=== PATIENT | female | born 2000 | race Caucasian/White ===

== ENCOUNTER → 2019-07-27 14:22 | Outpatient (CLI) | payer OTHER, MEDICAID, SELFPAY ==
--- NOTE | 2019-07-27 | DI.RAD.S_ITS ---
PROCEDURE: XR LUMBAR SPINE 2-3V INDICATIONS: Dorsalgia, unspecified TECHNIQUE: 3 views of the lumbar spine were acquired. COMPARISON: None. FINDINGS: Bones: 5 vml-eav-vblqtzo vertebrae are present. There is normal bony alignment. No vertebral body compression fractures. No suspicious bony lesions. Soft tissues: Overlying bowel gas pattern is normal. No suspicious soft tissue calcifications. IMPRESSION: Normal lumbar spine radiograph. Dictated by: Shelbie Mcclendon M.D. on 07/27/2019 at 16:43 Approved by: Shelbie Mcclendon M.D. on 07/27/2019 at 16:44
== END ==
PROVIDERS: PCP Nurse Practitioner Family; Visit Provider Family Medicine
DX: M54.9 Dorsalgia, unspecified (principal)
CPT/HCPCS: 72100

== ENCOUNTER 2019-09-27 21:49 | Emergency (ER) | payer OTHER, MEDICAID, SELFPAY ==
[2019-09-27 21:59] VITALS: BP 117/74; PULSE 83; RESP 16; TEMP 37.1; O2SAT 99; BMI 24.0
--- NOTE | 2019-09-27 22:02 | DI.RAD.S_ITS ---
PROCEDURE: XR CHEST 2V INDICATIONS: Cough x 1 week, pain on inspiration TECHNIQUE: 2 views of the chest were acquired. COMPARISON: None. FINDINGS: Surgical changes and devices: None. Lungs and pleura: Lungs are clear. No pleural effusions or pneumothorax. Mediastinum: Mediastinal contours are normal. Heart size is normal. Bones and chest wall: No suspicious bony abnormalities. Soft tissues appear unremarkable. IMPRESSION: No acute cardiopulmonary disease process. Dictated by: Gail Peralta MD, PhD on 09/28/2019 at 7:45 Approved by: Gail Peralta MD, PhD on 09/28/2019 at 7:56
--- NOTE | 2019-09-28 00:26 | ED.URI ---
HPI - URI/Sore Throat General Chief Complaint: Upper Respiratory Symptoms Stated Complaint: cough Time Seen by Provider: 09/28/19 00:26 Source: patient Mode of arrival: Ambulatory Limitations: no limitations History of Present Illness HPI Narrative: The patient has been ill for about 1 week. She complains of cough that is generally nonproductive. She has no associated chest pain. She has no history of asthma or allergies. She does vape. She has no associated sinus pressure, rhinorrhea or sore throat. She has no associated GI symptoms. She has no fever chills. She is otherwise healthy without chronic illness. Related Data Home Medications Medication Instructions Recorded Confirmed norgestimate-ethinyl estradiol #0 08/02/17 [Aaliyah (28)] Previous Rx's Medication Instructions Recorded famotidine [Pepcid] 40 mg PO QDAY #10 08/02/17 sulfamethoxazole-trimethoprim 1 tab PO BID 7 Days #0 tab 08/02/17 sulfamethoxazole-trimethoprim 1 tab PO BID #14 tab 09/11/17 Allergies Allergy/AdvReac Type Severity Reaction Status Date / Time No Known Allergies Allergy Uncoded 02/24/18 12:47 Review of Systems Review of Systems ROS Unobtainable: All systems reviewed & are unremarkable except as noted in HPI and below Constitutional Constitutional: Denies chills, Denies fever(s), Denies lethargy and Denies weakness Eyes Eyes: Denies eye discharge ENT Ears, Nose, Mouth, and Throat: Denies change in voice, Denies dizziness, Denies facial pain, Denies nasal congestion, Denies neck pain and Denies sore throat Cardiovascular Cardiovascular: Denies chest pain, Denies lightheadedness, Denies dyspnea and Denies orthopnea Respiratory Respiratory: Reports chest congestion, Reports cough, Denies hemoptysis, Denies pain on inspiration, Denies pain with cough and Denies dyspnea Gastrointestinal Gastrointestinal: Denies abdominal pain and Denies nausea Musculoskeletal Musculoskeletal: Denies back pain and Denies neck pain Integumentary/Breasts Skin/Breast: Denies pruritus, Denies erythema and Denies rash Neurologic Neurologic: Denies dizziness and Denies weakness Patient History Medical History No acute medical problems (Acute) Surgical History (Updated 09/28/19 @ 00:36 by David Davis MD) No significant past surgical history (Acute) Social History Smoking Status: Current every day smoker tobacco type: vaping Substance Use Type: does not use Exam Initial Vital Signs Initial Vital Signs: Vital Signs Temperature 98.7 F 09/27/19 21:59 Pulse Rate 83 09/27/19 21:59 Respiratory Rate 16 09/27/19 21:59 Blood Pressure 117/74 09/27/19 21:59 Pulse Oximetry 99 09/27/19 21:59 Const General: cooperative and well developed Nutritional Appearance: well nourished Orientation: alert, awake, oriented x3 and not confused HENMT Head: normocephalic and atraumatic Ears: TM's normal bilaterally Nose: external nose normal and No nasal discharge Face and sinus: sinuses nontender and face symmetric Mouth: oral mucosae normal Throat: posterior oropharynx normal and tonsils normal Neck Neck: No lymphadenopathy and No tender Resp Effort & Inspection: normal respiratory effort and able to speak in complete sentences Auscultation: clear to auscultation bilaterally, no rales, no rhonchi and no wheezes Cardio Rate: regular rate Rhythm: regular rhythm Heart Sounds: S1 normal, S2 normal, no click, no gallops, no murmurs and no rubs Pulses: normal peripheral pulses GI Palpation: soft and No tender Skin General: no rashes or lesions noted and No petechiae Neuro General: alert, oriented x3, gait normal and no focal motor deficits Speech: speech normal Course Orders Ordered: ED Orders 09/27/19 22:02 XR chest 2V Stat Vital Signs Vital signs: Vital Signs - 8 hr 09/27/19 21:59 Temperature 98.7 F Pulse Rate 83 Respiratory Rate 16 Blood Pressure 117/74 Pulse Oximetry 99 MDM - URI/Sore Throat Imaging Data Chest x-ray: My impression: No acute process identified Discharge Plan Departure Patient Disposition: Home Clinical Impression: Upper respiratory infection, viral Instructions: Common Cold Activity Restrictions/Additional Instructions: Mucinex or Robitussin DM may benefit the cough and congestion. Follow-up with her doctor return the ER if you develop fever, lethargy, or worsening of symptoms. Prescriptions: No Action norgestimate-ethinyl estradiol [TriNessa (28)] 1 EACH tablet Qty: 0 RF: 0 famotidine [Pepcid] 40 MG tablet 40 mg PO QDAY Qty: 10 RF: 0 sulfamethoxazole-trimethoprim 800 MG/160 MG tablet 1 tab PO BID 7 Days Qty: 0 RF: 0 sulfamethoxazole-trimethoprim 800 MG/160 MG tablet 1 tab PO BID Qty: 14 RF: 0 Referrals: Milly Cervantes FNP-BC [Primary Care Provider] - Stand Alone Forms: Work Release Note
[2019-09-28 00:47] VITALS: BP 122/66; PULSE 68; RESP 16; O2SAT 97
== END 2019-09-28 00:48 | disposition home or self-care (01) ==
PROVIDERS: Emergency Provider Emergency Medicine; PCP Nurse Practitioner Family
DX: J06.9 Acute upper respiratory infection, unspecified (principal)
CPT/HCPCS: 71046; 99282; 99283

== ENCOUNTER 2021-08-28 15:23 | Emergency (ER) | payer OTHER, MEDICAID, SELFPAY ==
[2021-08-28 15:33] VITALS: BP 122/70; PULSE 92; RESP 18; TEMP 36.5; O2SAT 98
--- NOTE | 2021-08-28 15:39 | DI.RAD.S_ITS ---
PROCEDURE: XR CHEST 2V INDICATIONS: cough/congestion TECHNIQUE: 2 views of the chest were acquired. COMPARISON: [facility], , XR CHEST 2V, 09/27/2019, 22:23. FINDINGS: Surgical changes and devices: Incidental note is made of a metallic body ornamentation artifact. Lungs and pleura: Lungs are clear. No pleural effusions or pneumothorax. Mediastinum: Mediastinal contours are normal. Heart size is normal. Bones and chest wall: No suspicious bony abnormalities. Soft tissues appear unremarkable. IMPRESSION: Clear lungs, without infiltrates. Dictated by: Shree Lehman M.D. on 08/28/2021 at 15:08 Approved by: Shree Lehman M.D. on 08/28/2021 at 15:08
[2021-08-28 15:59] LABS: COVID19 -Nasal RAPID Negative (Negative)
[2021-08-28] MEDS: KETOROLAC 30 MG/ML VIAL IM (17:40)
--- NOTE | 2021-08-28 18:01 | ED_ITS ---
HPI - URI/Sore Throat <EDGARD Fletcher - Last Filed: 08/28/21 18:43> General Chief Complaint: Upper Respiratory Symptoms Stated Complaint: Cough,Chest burning,Sneezing,Marquis,Headache, Cramp Time Seen by Provider: 08/28/21 16:49 Source: patient Mode of arrival: Ambulatory History of Present Illness HPI Narrative: The patient is a 21-year-old female current smoker with history of pyelonephritis who presents with a chief complaint of cough congestion sore throat ear pain the past 4-5 days. She denies any nausea vomiting diarrhea or abdominal pain. She states that she has a hard time sleeping because of her cough. She states her chest hurts when she is coughing so much. She took 2 tablets of Mucinex 2 days ago and 1 yesterday, otherwise no dqzb-kvz-dmjkinw medications. The patient denies possibility of . She states that her roommate tested positive for COVID 2-3 weeks ago, the patient has since tested negative. She states remains tested negative as well. She is concerned mostly about pneumonia given her constant cough. Related Data Home Medications Medication Instructions Recorded Confirmed norgestimate-ethinyl estradiol #0 08/02/17 0.18 mg/0.215mg/0.25mg-35 mcg(28)tablet (TriNessa (28)) Previous Rx's Medication Instructions Recorded famotidine 40 mg tablet (Pepcid) 40 mg PO QDAY #10 08/02/17 sulfamethoxazole 800 1 tab PO BID 7 Days #0 tab 08/02/17 mg-trimethoprim 160 mg tablet sulfamethoxazole 800 1 tab PO BID #14 tab 09/11/17 mg-trimethoprim 160 mg tablet benzonatate 100 mg capsule 100 mg PO BID-TID PRN #20 cap 08/28/21 (Tesbryon Nunn) ketorolac 10 mg tablet 10 mg PO TID PRN #14 tab 08/28/21 Allergies Allergy/AdvReac Type Severity Reaction Status Date / Time No Known Allergies Allergy Uncoded 02/24/18 12:47 Review of Systems <EDGARD Fletcher - Last Filed: 08/28/21 18:43> Review of Systems Narrative: GENERAL: See HPI HEENT: See HPI RESPIRATORY: See HPI CARDIOVASCULAR: Denies chest pain, palpitations, orthopnea, edema, GASTROINTESTINAL: Denies nausea, vomiting, abdominal pain, diarrhea, constipation, melena. : Denies dysuria, frequency, incontinence, hematuria, urinary retention. MUSCULOSKELETAL: denies weakness, joint pain, or bony pain SKIN: Denies rash, skin lesions, or other NEUROLOGIC: Denies weakness, headache, numbness, change in speech, confusion, seizures, incoordination. PSYCHIATRIC: No concerning psychosocial issues. 12 point review of systems is negative except for those stated above Patient History <EDGARD Fletcher - Last Filed: 08/28/21 18:43> Medical History (Updated 08/28/21 @ 18:14 by EDGARD Fletcher) No acute medical problems Surgical History (Updated 09/28/19 @ 00:36 by David Davis MD) No significant past surgical history Social History Smoking Status: Current every day smoker Smoking Status: Current every day smoker tobacco type: vaping Substance Use Type: does not use Exam <EDGARD Fletcher - Last Filed: 08/28/21 18:43> Narrative Exam Narrative: GENERAL: This is a well-nourished, well-developed patient, in no acute distress HEAD: Atraumatic. Normocephalic. No temporal or scalp tenderness. EYES: Pupils equal round and reactive. Extraocular motions intact. No scleral icterus. No injection or drainage. ENT: Nose without bleeding, purulent drainage or septal hematoma. Throat slight erythema and tonsillar hypertrophy but no exudate. Uvula midline. Airway patent. Right TM on visible due to impacted cerumen, left TM pearly wallace, slightly bu lging no erythema NECK: Trachea midline. No JVD or lymphadenopathy. Supple, nontender, no meningeal signs. CARDIOVASCULAR: Regular rate and rhythm RESPIRATORY: Clear to auscultation. Breath sounds equal bilaterally. Occasional cough, dry sound noted during exam GASTROINTESTINAL: Abdomen soft, non-tender, nondistended. No hepato- splenomegaly, or palpable masses. No guarding. EXTREMITIES: No clubbing, cyanosis, or edema. No joint tenderness, effusion, or edema noted. BACK: Nontender without deformity or crepitance. No flank tenderness. NEURO: AOx3. SKIN: No rash or erythema on visible skin Initial Vital Signs Initial Vital Signs: Vital Signs Temperature 97.7 F 08/28/21 15:33 Pulse Rate 92 H 08/28/21 15:33 Respiratory Rate 18 08/28/21 15:33 Blood Pressure 122/70 08/28/21 15:33 Pulse Oximetry 98 08/28/21 15:33 <DO Donna Campbell Last Filed: 08/28/21 19:01> Initial Vital Signs Initial Vital Signs: Vital Signs Temperature 97.7 F 08/28/21 15:33 Pulse Rate 92 H 08/28/21 15:33 Respiratory Rate 18 08/28/21 15:33 Blood Pressure 122/70 08/28/21 15:33 Pulse Oximetry 98 08/28/21 15:33 Scores <EDGARD Fletcher - Last Filed: 08/28/21 18:43> GCS Anant coma scale eye opening: Spontaneous Kalama coma scale verbal response: Orientated Anant coma scale motor response: Obey commands Kalama coma scale total score: 15 <DO Donna Campbell Last Filed: 08/28/21 19:01> GCS Anant coma scale total score: 15 Course <EDGARD Fletcher - Last Filed: 08/28/21 18:43> Orders Ordered: ED Orders 08/28/21 15:38 COVID19 -Nasal swab/Pre-Proc Stat 08/28/21 15:39 XR chest 2V Stat 08/28/21 17:25 Throat Culture Stat Discontinued Medications Ketorolac Tromethamine (Ketorolac 30 Mg/Ml Vial) 30 mg IM NOW ONE Stop: 08/28/21 17:26 Last Admin: 08/28/21 17:40 Dose: 30 mg Documented by: CARMELITA Vital Signs Vital signs: Vital Signs - 8 hr 08/28/21 15:33 08/28/21 18:08 Temperature 97.7 F Pulse Rate 92 H 79 Respiratory Rate 18 Blood Pressure 122/70 117/65 Pulse Oximetry 98 98 <DO Donna Campbell Last Filed: 08/28/21 19:01> Orders Ordered: ED Orders 08/28/21 15:38 COVID19 -Nasal swab/Pre-Proc Stat 08/28/21 15:39 XR chest 2V Stat 08/28/21 17:25 Throat Culture Stat Discontinued Medications Ketorolac Tromethamine (Ketorolac 30 Mg/Ml Vial) 30 mg IM NOW ONE Stop: 08/28/21 17:26 Last Admin: 08/28/21 17:40 Dose: 30 mg Documented by: CARMELITA Vital Signs Vital signs: Vital Signs - 8 hr 08/28/21 15:33 08/28/21 18:08 Temperature 97.7 F Pulse Rate 92 H 79 Respiratory Rate 18 Blood Pressure 122/70 117/65 Pulse Oximetry 98 98 MDM - URI/Sore Throat <CINDY Fletcher - Last Filed: 08/28/21 18:43> Lab Data Attestation: I reviewed the patient's lab results. Labs: Lab Results 08/28/21 Range/Units 15:38 SARS-CoV-2 (PCR) Negative (Negative) Point of Care Testing Rapid Strep A Negative Imaging Data Chest x-ray: Radiologist's Impression: [address] [place] [id number] XRay Report Signed Patient: Windy Dwo MR#: [id number] : 2000 Acct:[id number] Age/Sex: 21 / F Date of Service: 08/28/21 Loc: ED Accession Number: [id number] ?? Procedure: XR chest 2V Ordering Provider: Brian Mathias D.O. PROCEDURE:? XR CHEST 2V ? INDICATIONS:? cough/congestion ? TECHNIQUE:? 2 views of the chest were acquired.? ? COMPARISON:? [facility], , XR CHEST 2V, 09/27/2019, 22:23. ? FINDINGS:? ? Surgical changes and devices:? Incidental note is made of a metallic body ornamentation artifact. ? Lungs and pleura:? Lungs are clear.? No pleural effusions or pneumothorax.? ? Mediastinum:? Mediastinal contours are normal.? Heart size is normal.? ? Bones and chest wall:? No suspicious bony abnormalities.? Soft tissues appear unremarkable.? IMPRESSION:? Clear lungs, without infiltrates. ? ? Dictated by: Shree Lehman M.D. on 08/28/2021 at 15:08 ? ? Approved by: Shree Lehman M.D. on 08/28/2021 at 15:08 ? MDM Narrative Medical decision making narrative: The patient is a 21-year-old female who presents with a chief complaint of cough congestion ear pain general malaise for the past few days. However she appears nontoxic, no GI symptoms. COVID test is negative in the emergency department today, chest x-ray is without abnormalities. Given her cough, we discussed that she is not highly likely to have strep but elected to do a rapid and a throat culture at this time anyway given her erythema and slight tonsillar enlargement. Rapid results negative, throat cultures pending at this time. We did elect to use Toradol in the emergency department. Prescription of Toradol and Tessalon Perles given. Discussed at length follow up with primary care provider, that she does not need antibiotics for a sinus infection at this time given the short duration of illness. Did encourage continue ifup-etf-vjjpduo remedies including Flonase, NeilMed sinus rinse etcetera. I did discuss that she did test negative for COVID today, however she has lots of symptoms of COVID as well as an exposure, encouraged quarantine at home, low threshold to repeat test if needed. Patient has no questions or concerns upon discharge states understanding return precautions as well as follow-up care. <Brian Mathias, DO - Last Filed: 08/28/21 19:01> Lab Data Labs: Lab Results 08/28/21 Range/Units 15:38 SARS-CoV-2 (PCR) Negative (Negative) Point of Care Testing Rapid Strep A Negative Discharge Plan Departure Patient Disposition: Home Clinical Impression: Upper respiratory infection Qualifiers: URI type: unspecified viral URI Qualified Code(s): J06.9 - Acute upper respiratory infection, unspecified Instructions: DI for Cough -- Adult, DI for Viral Upper Respiratory Infection -- Adult, DI for COVID-19 (Suspected or Confirmed ), About the COVID-19 Vaccine, Can COVID-19 be prevented? Activity Restrictions/Additional Instructions: Thank you for trusting us with your care today As discussed, your coronavirus test is negative, your chest x-ray and no signs of pneumonia. I sent 2 prescriptions to [facility] in [place]. One is ketorolac or Toradol which is an NSAID. Do not combine this with any other NSAIDs such as ibuprofen or Aleve. This can be used for aches and pains. I also sent in a prescription of a cough capsule. Please continue rzqj-awn-isgzhob remedies as needed and able. I encouraged the use of Flonase, Neti pot, decongestants as needed and able. Please rest and push fluids. You did test negative for coronavirus today, but you have several signs of COVID and exposure, so please stay home and quarantine while you have any symptoms. Please do not hesitate to get retested. Please follow-up with primary care provider in the next few days. Please come back to the emergency department for any acute concerns. Prescriptions: New ketorolac 10 mg tablet 10 mg PO TID PRN (Reason: pain) Qty: 14 RF: 0 benzonatate [Tessalon Perles] 100 mg capsule 100 mg PO BID-TID PRN (Reason: cough) Qty: 20 RF: 0 No Action norgestimate-ethinyl estradiol [TriNessa (28)] 1 EACH tablet Qty: 0 RF: 0 famotidine [Pepcid] 40 MG tablet 40 mg PO QDAY Qty: 10 RF: 0 sulfamethoxazole-trimethoprim 800 MG/160 MG tablet 1 tab PO BID 7 Days Qty: 0 RF: 0 sulfamethoxazole-trimethoprim 800 MG/160 MG tablet 1 tab PO BID Qty: 14 RF: 0 Referrals: Milly Cervantes, TAMMI-BC [Primary Care Provider] - <Brian Mathias, - Last Filed: 08/28/21 19:01> [facility] Dr Mathias Co-Sign Statement: I was available for consultation during this patient's emergency department visit. This chart is signed by myself for administrative purposes only. I did not have direct contact with this patient during this visit. They were seen independently by the APC.
[2021-08-28 18:08] VITALS: BP 117/65; PULSE 79; O2SAT 98
== END 2021-08-28 18:39 | disposition home or self-care (01) ==
PROVIDERS: Emergency Medicine; Emergency Provider Nurse Practitioner Family; PCP Nurse Practitioner Family
DX: J06.9 Acute upper respiratory infection, unspecified (principal); R05.9 Cough, unspecified; Z20.822 Contact with and (suspected) exposure to COVID-19
CPT/HCPCS: 71046; 87070; 87077; 87147; 87635; 87880; 96372; 99283; C9803; J1885

== ENCOUNTER 2022-07-19 10:16 | Emergency (ER) | payer OTHER, MEDICAID, SELFPAY ==
[2022-07-19 10:20] VITALS: BP 139/64; PULSE 100; RESP 14; TEMP 36.8; O2SAT 96; BMI 25.7
--- NOTE | 2022-07-19 10:23 | ED.FEMALEGU ---
HPI - Female Genitourinary General Chief complaint: Urogenital-Female Stated complaint: uti Time Seen by Provider: 07/19/22 10:22 Source: patient Mode of arrival: Ambulatory Limitations: no limitations History of Present Illness HPI Narrative: This is a 22-year-old female on a citalopram for depression, prior UTIs. Patient presents with complaint of frequency, sense of incomplete emptying and dysuria for the past 10 days she is becoming increasingly more painful. No fevers or chills. No chest pain or shortness of breath, no nausea or vomiting. Patient denies diarrhea constipation. She is had some bilateral flank pain in the lower back that comes and goes. Patient states she has had some changes to her normal vaginal discharge and has some greenish discoloration. She states she is sexually active, no suspicions for STIs. She is not had any prior in the past. Patient denies any other major medical issues. No major surgeries. Patient denies allergies to medications. Positive for tobacco, occasional alcohol, no illicit. Related Data Home Medications Medication Instructions Recorded Confirmed norgestimate-ethinyl estradiol ##0 08/02/17 0.18 mg/0.215mg/0.25mg-35 mcg(28)tablet (TriNessa (28)) Previous Rx's Medication Instructions Recorded famotidine 40 mg tablet (Pepcid) 40 mg PO QDAY ##10 08/02/17 sulfamethoxazole 800 1 tab PO BID 7 days #0 tabs 08/02/17 mg-trimethoprim 160 mg tablet sulfamethoxazole 800 1 tab PO BID #14 tabs 09/11/17 mg-trimethoprim 160 mg tablet benzonatate 100 mg capsule 100 mg PO BID-TID PRN cough #20 08/28/21 (Tessalon Perles) caps ketorolac 10 mg tablet 10 mg PO TID PRN pain #14 tabs 08/28/21 cephalexin 500 mg capsule 500 mg PO BID 5 days #10 caps 07/19/22 phenazopyridine 100 mg tablet 100 mg PO TID PRN pain 6 doses #6 07/19/22 (Pyridium) tabs Allergies Allergy/AdvReac Type Severity Reaction Status Date / Time kiwi Allergy Verified 07/19/22 10:25 No Known Allergies Allergy Uncoded 02/24/18 12:47 Review of Systems Review of Systems ROS Unobtainable: All systems reviewed & are unremarkable except as noted in HPI and below Patient History Medical History (Updated 07/19/22 @ 10:53 by Mraisol Riddle DO) No acute medical problems Surgical History No significant past surgical history tobacco type: vaping Substance Use Type: does not use Exam Narrative Exam Narrative: GENERAL: Alert and oriented x three, mild distress. HEENT: Head normocephalic, atraumatic, EOMI, pupils reactive, face symmetric, moist mucous membranes NECK: Supple, full range of motion CARDIOVASCULAR: Regular rate and rhythm without murmurs, rubs or gallops. RESPIRATORY: Breath sounds equal bilaterally, no wheezes rales or rhonchi. ABDOMEN: Soft, nontender. Normoactive bowel sounds all 4 quadrants. No guarding or rebound, rigidity, no mass : No CVA tenderness EXTREMITIES: Normal range of motion, no clubbing or edema. Neurovascularly intact NEUROLOGICAL: Cranial nerves II through XII grossly intact. Moving all extremities SKIN: Warm, dry, no petechiae, no rashes or lesions. Initial Vital Signs Initial Vital Signs: Vital Signs Temperature 98.3 F 07/19/22 10:20 Pulse Rate 100 H 07/19/22 10:20 Respiratory Rate 14 07/19/22 10:20 Blood Pressure 139/64 07/19/22 10:20 Pulse Oximetry 96 07/19/22 10:20 Oxygen Delivery Method 07/19/22 10:20 Course Orders Ordered: ED Orders 07/19/22 10:21 Urine Culture Stat Urine Microscopic Stat Discontinued Medications Phenazopyridine HCl (Phenazopyridine 100 Mg Tablet) 200 mg PO NOW ONE Stop: 07/19/22 10:39 Last Admin: 07/19/22 10:57 Dose: 200 mg Documented By: RB Vital Signs Vital signs: Vital Signs - 8 hr 07/19/22 10:20 07/19/22 11:01 Temperature 98.3 F Pulse Rate 100 H 85 Respiratory Rate 14 16 Blood Pressure 139/64 122/65 Pulse Oximetry 96 97 Oxygen Delivery Method Room Air Room Air MDM - Female Genitourinary Lab Data Labs: Lab Results 07/19/22 Range/Units 10:21 Urine RBC 1-5/hpf (0-5/HPF) Urine WBC 30-100/hpf H (0-5/HPF) Ur Squamous Epith Cells 0-1 /hpf (0-5/HPF) Urine Bacteria Few (2-10) H (None) Ur Culture Indicated? Specimen cultured Point of Care Testing Test Results Negative Urine Dip Bedside Urine Glucose Negative Bedside Urine Bilirubin - Negative Bedside Urine Ketone - Negative Urine Specific [place] 1.03 Bedside Urine Occult Blood + Bedside Urine pH 6 Bedside Urine Protein +/- 15 Bedside Urine Urobilinogen - Negative Bedside Urine Nitrite - Negative Bedside Urine Leukocytes + 70 Esterase MDM Narrative Medical decision making narrative: This is a 22-year-old female who presents with symptoms consistent with UTI although she has noted a greenish discoloration to her normal vaginal discharge. Patient states she is not particularly suspicious for STIs. Discussed pelvic exam she defers until after urine micro has resulted. Micro shows leuks, white cells. Discussed patient should still have a pelvic exam she defers today but we discussed if her symptoms are not improving with oral antibiotics she does need a pelvic exam for further evaluation. Patient expresses her understanding. Discharge Plan Departure Patient Disposition: Home Clinical Impression: UTI (urinary tract infection) Instructions: DI for Urinary Tract Infection (UTI) Activity Restrictions/Additional Instructions: Please follow-up for recheck. If your symptoms do not improve with antibiotics I do recommend a pelvic exam for further evaluation for cervicitis or vaginal infection. Take antibiotics until completely gone. Prescription sent to [facility] in [place]. Please return for fevers, new or worsening abdominal, back or flank pain, persistent vomiting, black or bloody stools, inability urinate or other new or concerning symptoms. Prescriptions: New cephalexin 500 mg capsule 500 mg PO BID 5 Days Qty: 10 0RF phenazopyridine [Pyridium] 100 mg tablet 100 mg PO TID PRN (Reason: pain) Qty: 6 0RF No Action norgestimate-ethinyl estradiol [TriNessa (28)] 1 EACH tablet Qty: 0 famotidine [Pepcid] 40 MG tablet 40 mg PO QDAY Qty: 10 0RF sulfamethoxazole-trimethoprim 800 MG/160 MG tablet 1 tab PO BID 7 Days Qty: 0 0RF sulfamethoxazole-trimethoprim 800 MG/160 MG tablet 1 tab PO BID Qty: 14 0RF ketorolac 10 mg tablet 10 mg PO TID PRN (Reason: pain) Qty: 14 0RF benzonatate [Tessalon Perles] 100 mg capsule 100 mg PO BID-TID PRN (Reason: cough) Qty: 20 0RF Referrals: Brian Jung MD [Primary Care Provider] - Visit Report Forms: Patient Portal/API
[2022-07-19 10:49] LABS: Bacteria Urine Few (2-10); Culture Indicated Urine Specimen Cultured; RBC Urine 1-5/HPF (0-5/HPF); Squamous Epithelial Cell Urine 0-1 /HPF (0-5/HPF); WBC Urine 30-100/HPF (0-5/HPF)
[2022-07-19] MEDS: PHENAZOPYRIDINE 100 MG TABLET 200 MG PO (10:57)
[2022-07-19 11:01] VITALS: BP 122/65; PULSE 85; RESP 16; O2SAT 97
== END 2022-07-19 11:02 | disposition home or self-care (01) ==
PROVIDERS: Emergency Provider Emergency Medicine; PCP Orthopaedic Surgery
DX: N39.0 Urinary tract infection, site not specified (principal)
CPT/HCPCS: 81003; 81015; 81025; 87077; 87086; 87186; 99283